=== PATIENT | female | born 1975 | race Caucasian/White ===

== ENCOUNTER 2017-03-27 20:50 | Inpatient (IN) | payer BC ==
[~2017-03-27] VITALS: Ht 144.8 cm; Wt 49.9 kg
[2017-03-27 20:52] VITALS: BP_SYST 137
[2017-03-27] MEDS ORDERED: METOCLOPRAMIDE HCL 10 MG/2 ML VIAL IVP ONE (21:30)
[2017-03-27] MEDS ORDERED: NACL 0.9% 1,000 ML IV ONE ×2 (21:30→23:45)
[2017-03-27 22:09] LABS: BASOPHILS % (AUTO) 0.2 % (0.0-2.0); EOSINOPHILS # (AUTO) 0.1 K/uL (0.0-0.4); EOSINOPHILS % (AUTO) 1.1 % (0.0-4.0); HEMATOCRIT 29.7 % (36-48); HEMOGLOBIN 9.7 g/dL (12.0-16.0); LYMPHOCYTES # (AUTO) 0.7 K/uL (1.0-5.5); LYMPHOCYTES % (AUTO) 11.5 % (20.5-51.5); MEAN CORPUSCULAR HEMOGLOBIN 31 pg (27-31); MEAN CORPUSCULAR HGB CONC 33 % (32-36); MEAN CORPUSCULAR VOLUME 95 fL (79.0-98.0); MONOCYTES # (AUTO) 0.4 K/uL (0.0-1.0); MONOCYTES % (AUTO) 6.8 % (1.7-9.3); NEUTROPHILS # (AUTO) 4.8 K/uL (1.8-7.7); NEUTROPHILS % (AUTO) 80.4 % (40.0-70.0); PLATELET COUNT (AUTO) 417 K/uL (130-430); RED BLOOD CELL COUNT(AUTO) 3.13 MIL/uL (4.2-6.2); RED CELL DISTRIBUTION WIDTH 20.1 % (9.0-15.0)
[2017-03-27 22:14] LABS: CALCIUM 9.7 mg/dL (8.4-11.0); CREATININE 0.78 mg/dL (0.55-1.30); POTASSIUM 3.6 mmol/L (3.5-5.1)
[2017-03-27 22:19] LABS: ALBUMIN 3.6 g/dL (3.4-4.8); TOTAL BILIRUBIN 0.4 mg/dL (0.0-1.0)
[2017-03-27] MEDS ORDERED: KRIL1CAP18 PO (23:04)
[2017-03-27] MEDS ORDERED: CALCIUM MAGNESIUM PO (23:04)
[2017-03-27] MEDS ORDERED: COENZYME Q10 PO (23:04)
[2017-03-27] MEDS ORDERED: [UNRECOGNIZED DRUG - OTHER] PO (23:04)
[2017-03-27] MEDS ORDERED: LORazepam 2 MG/ML VIAL (FOR ER USE) IVP ONE (23:45)
[2017-03-28] VITALS (12 sets, daily range): BP systolic 121–188
[2017-03-28] MEDS ORDERED: ONDANSETRON HCL 4 MG/2 ML VIAL IVP PRN (00:15)
[2017-03-28] MEDS: D5NS 1,000 ML IV SCH ×3 (02:33→13:35)
[2017-03-28] MEDS ORDERED: LORazepam 2 MG/ML VIAL IVP ONE (08:15)
[2017-03-28 08:43] LABS: BILIRUBIN,URINE NEGATIVE (NEGATIVE); BLOOD, URINE NEGATIVE (NEGATIVE); CLARITY/URINE CLEAR (CLEAR); COLOR,URINE YELLOW (YELLOW); GLUCOSE,URINE NEGATIVE (NEGATIVE); KETONES,URINE NEGATIVE (NEGATIVE); LEUKOCYTE ESTERASE ,URINE NEGATIVE (NEGATIVE); NITRITE, URINE NEGATIVE (NEGATIVE); PH,URINE 6.5 (5.0-8.0); PROTEIN URINE NEGATIVE (NEGATIVE); UROBILINOGEN,URINE 0.2 (0.2-1.0)
[2017-03-28] MEDS ORDERED: levETIRAcetam 500 MG in NS 100 ML IV SCH (12:00)
[2017-03-28] MEDS ORDERED: MANNITOL 25% 12.5GM/50 ML VIAL IV ONE (12:15)
[2017-03-28] MEDS ORDERED: GADOPENTETATE DIMEGLUMINE 15 ML VIAL IV ONE (12:33)
[2017-03-28] MEDS: DEXAMETHASONE SOD PHOSPHATE 10 MG/ML VIAL IVP SCH ×2 (13:47→20:00)
== END 2017-03-28 20:44 | disposition expired | DRG 72 ==
LOC: SED 20:50 → SMU 03-28 00:07 → SIC 03-28 00:25 → SMU 03-28 01:07 → SIC 03-28 12:10
PROVIDERS: ADMIT Internal Medicine Hospice and Palliative Medicine; ATTEND Internal Medicine Hospice and Palliative Medicine
DX: G93.89 Other specified disorders of brain (principal); C55 Malignant neoplasm of uterus, part unspecified; Z66 Do not resuscitate; Z90.710 Acquired absence of both cervix and uterus; Z92.21 Personal history of antineoplastic chemotherapy
CPT/HCPCS: 36415; 36600; 70450-TC; 70553; 80053; 81003; 82803-TC; 85025; 87081; 96361; 96374; 96375; 99285; A9579; J1100; J1953; J2060; J2150; J2765; J7030; J7042